=== PATIENT | female | born 1975 | race American Indian/Alaskan Native ===

== ENCOUNTER 2018-03-09 03:13 | Observation (INO) | payer SELFPAY ==
[2018-03-09 03:38] VITALS: RESP 18; TEMP 98.3; O2SAT 99
[2018-03-09] MEDS ORDERED: Oxycodone/Acetaminophen 5/325 mg Tab PO STA (03:54)
--- NOTE | 2018-03-09 03:54 | ED PDOC ---
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 Patient is also complaining of right calf tenderness and right knee discomfort. Patient denies any history of trauma. Patient denies any fever, chills, chest pain, shortness of breath, nausea, vomiting, diarrhea, urinary symptoms, back pain, neck pain, headache, dizziness, or any other complaints. Time/Duration: Other (9 months) Symptom Onset: Gradual Symptom Course: Worsening Activities at Onset: Light Context: Home Past Medical History - Provider Review Nursing Documentation Reviewed: Yes - Infectious Disease Hx of Infectious Diseases: None - Reproductive Currently : No - Musculoskeletal/Rheumatological Other/Comment: Rylan Danlos - Psychiatric Hx Substance Use: No Family/Social History - Physician Review Nursing Documentation Reviewed: Yes Family/Social History: No Known Family HX Smoking Status: Never Smoked Hx Alcohol Use: No Hx Substance Use: No Allergies/Home Meds Allergies/Adverse Reactions: Allergies NSAIDS (Non-Steroidal Anti-Inflamma Adverse Reaction (Verified 03/09/18 03:52) SWELLING Home Medications: Home Meds Medication Instructions Recorded Confirmed Clonazepam [Klonopin] 0.5 mg PO BID 03/09/18 03/09/18 Venlafaxine [Effexor 50 MG TAB] 150 mg PO DAILY 03/09/18 03/09/18 Review of Systems - Physician Review All systems were reviewed & negative as marked: Yes - Review of Systems Constitutional: absent: Fevers, Other (chills) Respiratory: absent: SOB Cardiovascular: absent: Chest Pain Gastrointestinal: absent: Diarrhea, Nausea, Vomiting Genitourinary Female: absent: Dysuria, Frequency, Hematuria Musculoskeletal: Other (lower leg swelling and redness, right calf tenderness, and right knee discomfort ). absent: Back Pain, Neck Pain Neurological: absent: Headache, Dizziness Physical Exam Vital Signs Reviewed: Yes Vital Signs Temp Pulse Resp BP Pulse Ox 03/09/18 03:22 98.3 F 87 18 119/43 L 99 Temperature: Afebrile Blood Pressure: Hypotensive Pulse: Regular Respiratory Rate: Normal Appearance: Positive for: Well-Appearing, Non-Toxic, Comfortable Pain Distress: None Mental Status: Positive for: Alert and Oriented X 3 - Systems Exam Head: Present: Atraumatic, Normocephalic Pupils: Present: PERRL Extroacular Muscles: Present: EOMI Conjunctiva: Present: Normal Mouth: Present: Moist Mucous Membranes Neck: Present: Normal Range of Motion Respiratory/Chest: Present: Clear to Auscultation, Good Air Exchange. No: Respiratory Distress, Accessory Muscle Use Cardiovascular: Present: Regular Rate and Rhythm, Normal S1, S2. No: Murmurs Abdomen: No: Tenderness, Distention, Peritoneal Signs Back: Present: Normal Inspection Upper Extremity: Present: Normal Inspection. No: Cyanosis, Edema Lower Extremity: Present: CALF TENDERNESS (some mild palpible tenderness to the right posterior calf), Swelling (bilateral leg swelling ), Erythema (bilateral leg erythema and warmth), Neurovascularly Intact, Other (mild discomfort with right knee flexion. ). No: Edema Neurological: Present: GCS=15, CN II-XII Intact, Speech Normal Skin: Present: Warm, Dry, Normal Color. No: Rashes Psychiatric: Present: Alert, Oriented x 3, Normal Insight, Normal Concentration Medical Decision Making ED Course and Treatment: 03/09/18 03:53 Impression: 43 year old female presents complaining of bilateral leg swelling and redness. patient also complaining of right calf tenderness and right knee discomfort. Plan: -- Labs -- Percocet -- Knee w patella right x-ray -- Duplex LE vein US -- Reassess and disposition Progress Notes: 03/09/18 05:14 Duplex LE vein US impression: negative Knee w patella right x-ray impression: As read by me, no acute process 03/09/18 05:35 Case discussed with the manager of medical and Dr. Russ Barbour who is aware and agrees with the plan. Patient will be admitted to hospitalist service. - Lab Interpretations I have reviewed the lab results: Yes - RAD Interpretation Weighter: ED Physician - Scribe Statement The provider has reviewed the documentation as recorded by the Scribe Hue Gallardo Provider Scribe Attestation: All medical record entries made by the Scribe were at my direction and personally dictated by me. I have reviewed the chart and agree that the record accurately reflects my personal performance of the history, physical exam, medical decision making, and the department course for this patient. I have also personally directed, reviewed, and agree with the discharge instructions and disposition. Disposition/Present on Arrival - Present on Arrival Any Indicators Present on Arrival: No History of DVT/PE: No History of Uncontrolled Diabetes: No Urinary Catheter: No History of Decub. Ulcer: No History Surgical Site Infection Following: None - Disposition Have Diagnosis and Disposition been Completed?: Yes Diagnosis: Bilateral lower leg cellulitis Disposition: HOSPITALIZED Disposition Time: 05:44 Patient Problems: Current Active Problems Problem Status Onset Bilateral lower leg cellulitis Acute Condition: STABLE
[2018-03-09 04:23] LABS: HEMOGLOBIN 10.7 g/dL (12.0-16.0); MEAN CELL VOLUME 88.3 fl (80.0-105.0); MEAN CORPUSCULAR HEMOGLOBIN 29.8 pg (25.0-35.0); MEAN CORPUSCULAR HGB CONC 33.8 g/dl (31.0-37.0); MEAN PLATELET VOLUME 11.3 fl (7.0-11.0); RBC 3.59 10^6/uL (3.5-6.1); RED CELL DISTRIBUTION WIDTH 12.5 % (11.5-14.5); WHITE BLOOD COUNT 3.6 10^3/uL (4.5-11.0)
[2018-03-09 04:40] LABS: ALB/GLOB RATIO 1.1 (1.1-1.8); ALBUMIN 3.8 g/dL (3.0-4.8); ALT/SGPT 32 U/L (7-56); AST/SGOT 28 U/L (14-36); BLOOD UREA NITROGEN 10 mg/dL (7-21); GFR NON-AFRICAN AMERICAN > 60
[2018-03-09] MEDS ORDERED: cefTRIAXone 1 gm 1 GM/100 ML BAG IV STA (05:31)
[2018-03-09] MEDS ORDERED: Morphine 2 mg/ml ISec IVP STA (05:32)
[2018-03-09] MEDS ORDERED: Vancomycin 1gm in NS 250ml 1 GM/250 ML BAG IVPB STA (05:35)
--- NOTE | 2018-03-09 05:40 | CP.PCM.HP ---
History of Present Illness - History of Present Illness History of Present Illness: Lupillo Garcia, PGY1 H&P for Dr. Barbour cc: lower leg swelling and redness for 9 months Patient is a 43 year old female with PMHx Rylan-Danlos syndrome who presented to the ED complaining of bilateral lower leg swelling and redness that p rogressively worsen for the past 9 months. In the ED Vitals: Temp 98.3, HR 87, RR 18, BP 119/43, SaO2 99%. Medical team was consulted for evaluation. Patient said she has had swelling and pain in the legs for several months. She had a surgery for chronic knee pain in October 2017 and her symptoms never resolved. She denies fever, chills, chest pain, shortness of breath, nausea, vomiting, diarrhea, urinary symptoms, back pain, neck pain, headache, dizziness, or any other complaints. Patient has occasional neck pain and discomfort of her lumbar spine related to her Rylan-Danlos. She does not have any history of diabetes and she denies trauma to the area. A full 12 point ROS was conducted and unremarkable except as stated above. PMD: Dr. Sheldon ([place]) PMHx: Rylan-Danlos PSHx: Lateral release surgery of the knee (October 2017) Meds: venlafaxine 150 mg PO daily, Klonopin 0.5mg PO BID Allergies: NSAIDs FamHx: stroke hx in grandmother, grandfather, and mother. SocialHx: previously worked in the army. Denies EtOH, smoking, and recreational drug use. Present on Admission - Present on Admission Any Indicators Present on Admission: No Review of Systems - Review of Systems All systems: reviewed and no additional remarkable complaints except (as per HPI.) Past Patient History - Infectious Disease Hx of Infectious Diseases: None - Past Social History Smoking Status: Never Smoked - MUSCULOSKELETAL/RHEUMATOLOGICAL Other/Comment: Rylan Danlos - PSYCHIATRIC Hx Substance Use: No Meds Allergies/Adverse Reactions: Allergies Allergy/AdvReac Type Severity Reaction Status Date / Time NSAIDS (Non-Steroidal AdvReac SWELLING Verified 03/09/18 03:52 Anti-Inflamma Physical Exam - Constitutional Appears: No Acute Distress - Head Exam Head Exam: ATRAUMATIC, NORMAL INSPECTION, NORMOCEPHALIC - Eye Exam Eye Exam: EOMI, Normal appearance - ENT Exam ENT Exam: Mucous Membranes Moist - Respiratory Exam Respiratory Exam: Clear to Auscultation Bilateral, NORMAL BREATHING PATTERN. absent: Rales, Rhonchi, Wheezes - Cardiovascular Exam Cardiovascular Exam: RRR, +S1, +S2 - GI/Abdominal Exam GI & Abdominal Exam: Normal Bowel Sounds, Soft. absent: Bruit, Firm, Guarding, Hernia, Rigid, Tenderness - Extremities Exam Extremities exam: Positive for: normal capillary refill, normal inspection, pedal pulses present. Negative for: calf tenderness, full ROM, tenderness Additional comments: Warm and erythematous lower extremities bilaterally. Mildly painful to palpation of lower extremities and knees. No evidence of hematoma or fluctuating mass. - Back Exam Back exam: NORMAL INSPECTION - Neurological Exam Neurological exam: Alert, Oriented x3 - Psychiatric Exam Psychiatric exam: Agitated - Skin Skin Exam: Dry, Intact, Warm Results - Vital Signs Recent Vital Signs: Last Vital Signs Temp 98.3 F 03/09/18 03:22 Pulse 87 03/09/18 03:22 Resp 18 03/09/18 03:22 BP 119/43 L 03/09/18 03:22 Pulse Ox 99 03/09/18 03:22 - Labs Result Diagrams: 03/09/18 04:06 03/09/18 04:06 Labs: Laboratory Results - last 24 hr 03/09/18 03/09/18 04:06 04:06 WBC 3.6 L RBC 3.59 Hgb 10.7 L Hct 31.7 L MCV 88.3 MCH 29.8 MCHC 33.8 RDW 12.5 Plt Count 232 MPV 11.3 H Sodium 134 Potassium 4.2 Chloride 101 Carbon Dioxide 28 Anion Gap 10 BUN 10 Creatinine 0.6 L Est GFR ( Amer) > 60 Est GFR (Non-Af Amer) > 60 Random Glucose 96 Calcium 9.0 Total Bilirubin 0.6 AST 28 ALT 32 Alkaline Phosphatase 79 Total Protein 7.3 Albumin 3.8 Globulin 3.5 Albumin/Globulin Ratio 1.1 Assessment & Plan - Assessment and Plan (Free Text) Assessment: Patient is a 43 year old female with PMHx Rylan-Danlos syndrome who presented to the ED complaining of bilateral lower leg swelling and redness that progressively worsen for the past 9 months. Patient will be admitted for cellulitis. Plan: Bilateral Lower Extremity Cellulitis 2/2 Rylan-Danlos - vanco for gram positive coverage - elevate legs - f/u blood cx - wbc 3.6 in ED - repeat cbc - LE Venous US: negative for DVT (prelim), f/u official read - Pending patella xray - pain control - Given Hx of connective tissue disorder, patient is more prone to soft tissue infection - No Hx of trauma or DM GI ppx: pepcid DVT ppx: hep sc Diet: regular Dispo: monitor patient on the floor. Case was discussed and reviewed with Attending Physician, Dr. Barbour
[2018-03-09 06:28] VITALS: BP 124/67; PULSE 83
--- NOTE | 2018-03-09 10:20 | RAD ---
Date of service: 03/09/2018 PROCEDURE: Right Knee Radiographs. HISTORY: pain COMPARISON: None. FINDINGS: BONES: Normal. No fracture. JOINTS: Normal. No osteoarthritis. JOINT EFFUSION: None. OTHER FINDINGS: None. IMPRESSION: Normal radiographs of the right knee.
--- NOTE | 2018-03-09 15:42 | CP.PCM.DIS ---
<Jaylon Cantu - Last Filed: 03/09/18 15:36> Provider - Provider Date of Admission: 03/09/18 05:36 Attending physician: Alisa Rivera MD Time Spent in preparation of Discharge (in minutes): 35 Diagnosis - Discharge Diagnosis (1) Localized swelling of both lower legs Status: Chronic Hospital Course - Lab Results Lab Results: Most Recent Lab Values WBC 3.6 10^3/uL (4.5-11.0) L 03/09/18 04:06 RBC 3.59 10^6/uL (3.5-6.1) 03/09/18 04:06 Hgb 10.7 g/dL (12.0-16.0) L 03/09/18 04:06 Hct 31.7 % (36.0-48.0) L 03/09/18 04:06 MCV 88.3 fl (80.0-105.0) 03/09/18 04:06 MCH 29.8 pg (25.0-35.0) 03/09/18 04:06 MCHC 33.8 g/dl (31.0-37.0) 03/09/18 04:06 RDW 12.5 % (11.5-14.5) 03/09/18 04:06 Plt Count 232 10^3/uL (120.0-450.0) 03/09/18 04:06 MPV 11.3 fl (7.0-11.0) H 03/09/18 04:06 ESR 79 mm/hr (0.0-20.0) H 03/09/18 06:00 Sodium 134 mmol/L (132-148) 03/09/18 04:06 Potassium 4.2 mmol/L (3.6-5.0) 03/09/18 04:06 Chloride 101 mmol/L (98-107) 03/09/18 04:06 Carbon Dioxide 28 mmol/L (21-33) 03/09/18 04:06 Anion Gap 10 (10-20) 03/09/18 04:06 BUN 10 mg/dL (7-21) 03/09/18 04:06 Creatinine 0.6 mg/dl (0.7-1.2) L 03/09/18 04:06 Est GFR ( Amer) > 60 03/09/18 04:06 Est GFR (Non-Af Amer) > 60 03/09/18 04:06 Random Glucose 96 mg/dL (70-110) 03/09/18 04:06 Calcium 9.0 mg/dL (8.4-10.5) 03/09/18 04:06 Total Bilirubin 0.6 mg/dL (0.2-1.3) 03/09/18 04:06 AST 28 U/L (14-36) 03/09/18 04:06 ALT 32 U/L (7-56) 03/09/18 04:06 Alkaline Phosphatase 79 U/L (38-126) 03/09/18 04:06 Total Creatine Kinase 102 U/L (35-230) 03/09/18 06:00 C-React Prot High Sens > 15.00 mg/L (1.00-3.00) H 03/09/18 06:00 Total Protein 7.3 g/dL (5.8-8.3) 03/09/18 04:06 Albumin 3.8 g/dL (3.0-4.8) 03/09/18 04:06 Globulin 3.5 gm/dL 03/09/18 04:06 Albumin/Globulin Ratio 1.1 (1.1-1.8) 03/09/18 04:06 - Hospital Course Hospital Course: Jaylon Cantu D.O. PGY-3, Internal Medicine Resident, Hospitalists Discharge Note Refer to History and Physical note for more information. 43 [facility] with [facility] LE [facility]. Patient was being evaluated for possible cellulitis and had received rocephin and vancomycin. Patient was re-evaluated during rounds. Patient agitated, asking for pain medication, stated could not take NSAIDs cause she "used to pop them like candy in the and they blew a hole thru my stomach." Asking for "strong" pain medication. States that her legs are painful. Further questioning to elucidate etiology of leg pain agitated patient further, demanding that she be provided with transportation home. Requested to leave AMA but eloped. - Date & Time of H&P Date of H&P: 03/09/18 Time of H&P: 15:37 Discharge Exam - Head Exam Head Exam: ATRAUMATIC, NORMAL INSPECTION, NORMOCEPHALIC - Eye Exam Eye Exam: absent: Scleral icterus - ENT Exam ENT Exam: Mucous Membranes Moist - Neck Exam Neck exam: Normal Inspection - Respiratory Exam Respiratory Exam: absent: Rhonchi, Wheezes - Cardiovascular Exam Cardiovascular Exam: RRR, +S1, +S2 - GI/Abdominal Exam GI & Abdominal Exam: Soft. absent: Distended - Extremities Exam Additional comments: BL LE non-pitting swelling, slight erythema that resolves with leg raising - Psychiatric Exam Psychiatric exam: Agitated - Skin Skin Exam: Intact, Warm Discharge Plan - Follow Up Plan Condition: UNKNOWN Disposition: AGAINST MEDICAL ADVICE Instructions: Cellulitis (DC), Cellulitis (GEN) <Iris Talamantes R - Last Filed: 03/12/18 22:35> Provider - Provider Date of Admission: 03/09/18 05:36 Attending physician: Alisa Rivera MD Hospital Course - Lab Results Lab Results: Micro Results 03/09/18 06:20 Blood Blood Culture - Preliminary NO GROWTH AFTER 3 DAYS 03/09/18 05:55 Blood Blood Culture - Preliminary NO GROWTH AFTER 3 DAYS Most Recent Lab Values WBC 3.6 10^3/uL (4.5-11.0) L 03/09/18 04:06 RBC 3.59 10^6/uL (3.5-6.1) 03/09/18 04:06 Hgb 10.7 g/dL (12.0-16.0) L 03/09/18 04:06 Hct 31.7 % (36.0-48.0) L 03/09/18 04:06 MCV 88.3 fl (80.0-105.0) 03/09/18 04:06 MCH 29.8 pg (25.0-35.0) 03/09/18 04:06 MCHC 33.8 g/dl (31.0-37.0) 03/09/18 04:06 RDW 12.5 % (11.5-14.5) 03/09/18 04:06 Plt Count 232 10^3/uL (120.0-450.0) 03/09/18 04:06 MPV 11.3 fl (7.0-11.0) H 03/09/18 04:06 ESR 79 mm/hr (0.0-20.0) H 03/09/18 06:00 Sodium 134 mmol/L (132-148) 03/09/18 04:06 Potassium 4.2 mmol/L (3.6-5.0) 03/09/18 04:06 Chloride 101 mmol/L (98-107) 03/09/18 04:06 Carbon Dioxide 28 mmol/L (21-33) 03/09/18 04:06 Anion Gap 10 (10-20) 03/09/18 04:06 BUN 10 mg/dL (7-21) 03/09/18 04:06 Creatinine 0.6 mg/dl (0.7-1.2) L 03/09/18 04:06 Est GFR ( Amer) > 60 03/09/18 04:06 Est GFR (Non-Af Amer) > 60 03/09/18 04:06 Random Glucose 96 mg/dL (70-110) 03/09/18 04:06 Calcium 9.0 mg/dL (8.4-10.5) 03/09/18 04:06 Total Bilirubin 0.6 mg/dL (0.2-1.3) 03/09/18 04:06 AST 28 U/L (14-36) 03/09/18 04:06 ALT 32 U/L (7-56) 03/09/18 04:06 Alkaline Phosphatase 79 U/L (38-126) 03/09/18 04:06 Total Creatine Kinase 102 U/L (35-230) 03/09/18 06:00 C-React Prot High Sens > 15.00 mg/L (1.00-3.00) H 03/09/18 06:00 Total Protein 7.3 g/dL (5.8-8.3) 03/09/18 04:06 Albumin 3.8 g/dL (3.0-4.8) 03/09/18 04:06 Globulin 3.5 gm/dL 03/09/18 04:06 Albumin/Globulin Ratio 1.1 (1.1-1.8) 03/09/18 04:06 Attending/Attestation - Attestation I have personally seen and examined this patient.: Yes I have fully participated in the care of the patient.: Yes I have reviewed all pertinent clinical information, including history, physical exam and plan: Yes Notes (Text): Please note this DC summary is for 03/09/18 Patient seen and examined by me with resident 10:30AM on 03/09/18. Agree with above with following additions/corrections. Patient is a 43-year-old female with past medical history significant for Rylan-Danlos syndrome who presented to the emergency room with bilateral lower extremity swelling and redness for the past 9 months. Please see H&P for full details. Patient was admitted with bilateral lower extremity cellulitis. Patient was started on vancomycin. Patient had no leukocytosis. Patient was afebrile. Per patient, this has been going on for approximately 9 months. Erythema resolved when legs were elevated. ID was consulted. Lower extremity venous dopplers were negative for DVT. Right knee xray per radiologist showed normal radiographs of the right knee. Blood cultures showed no growth. Further work up was pending. Notified patient left the hospital and eloped at 11:50AM prior to being seen or provided with any medications/instructions and without signing an AMA form. Physical exam: General: Awake and alert lying in bed in no acute distress HEENT: Normocephalic, atraumatic. Extraocular muscles intact, pupils equal and reactive, no scleral icterus. Oropharynx is pink and moist. No pharyngeal erythema or exudate appreciated. Neck is supple. Hearing grossly intact. Ears and nose externally unremarkable. Cardiovascular: Regular rhythm. Normal S1 and S2. No murmurs, rubs, or gallops appreciated Pulmonary: Normal respiratory effort. No rhonchi, rales, or wheezing appreciated. Gastrointestinal: Soft, nondistended. Nontender. Positive bowel sounds all 4 quadrants. No guarding. Musculoskeletal: Moves all extremities. No calf tenderness. Positive bilateral lower extremity pitting edema. Erythema resolved when legs are lifted up bilaterally. Central nervous system: AAOx3, CN 2-12 grossly intact. Dermatologic: Skin warm and dry. Please see chart for full details
[2018-03-10] MEDS ORDERED: Vancomycin 1gm in NS 250ml 1 GM/250 ML BAG IVPB SCH (10:00)
--- NOTE | 2018-03-10 18:15 | US ---
HISTORY: Leg pain and swelling. Evaluate for DVT PHYSICIAN(S): Ari Fraga MD. TECHNIQUE: Duplex sonography and color-flow Doppler with graded compression were used to evaluate the deep venous systems of both lower extremities. FINDINGS: The visualized deep venous systems of both lower extremities are sonographically normal and compressible. Normal wave forms and augmentation are seen. There is no sonographic evidence for deep venous thrombosis in the visualized segments of both lower extremities. IMPRESSION: No sonographic evidence for deep venous thrombosis in the visualized segments of both lower extremities.
== END 2018-03-09 15:19 | disposition left against medical advice (07) ==
LOC: ED 03:13 → ERH 05:36 → 5RSO 07:45
PROVIDERS: ADMIT Internal Medicine; ATTEND Internal Medicine
DX: L03.116 Cellulitis of left lower limb (principal); L03.115 Cellulitis of right lower limb; Q79.6 Ehlers-Danlos syndromes
CPT/HCPCS: 73562; 80053; 81025; 82550; 85027; 85651; 86140; 87040; 93970; 96374; 96375; 99284; G0378; J0696; J2270